=== PATIENT | female | born 1975 | race Hispanic/Latino ===

== ENCOUNTER → 2024-11-22 06:32 | Outpatient (REF) | payer OTHER, SELFPAY ==
[2024-11-22 08:11] LABS: ALT (SGPT) 16 U/L (0-35); AST (SGOT) 19 U/L (14-36); Albumin 4.4 g/dl (3.5-5.0); Alkaline Phosphatase 107 U/L (38-126); Blood Urea Nitrogen 10 mg/dl (7-17); Carbon Dioxide 23 mmol/L (22-30); Chloride 108 mmol/L (98-107); Glucose 154 mg/dl (70-99); Potassium 4.6 mmol/L (3.5-5.1); Sodium 140 mmol/L (135-145); Total Bilirubin 0.4 mg/dl (0.2-1.3); Total Protein 7.9 g/dl (6.3-8.2); eGFR > 60.00
[2024-11-22 08:24] LABS: Glycohemoglobin (HgbA1c) 7.3 % (4.0-5.6)
[2024-11-22 08:26] LABS: % Basophils 0.9 % (0-2); % Eosinophils 9.1 % (0-6); % Immature Granulocytes 0.4 % (0-0.5); % Lymphocytes 28.1 % (20.5-51.1); % Monocytes 9.8 % (1.7-9.3); % Neutrophils 51.7 % (42.2-75.2); Absolute Basophils 0.1 10^3/uL (0-0.2); Absolute Eosinophils 0.5 10^3/uL (0-0.7); Absolute Lymphocytes 1.6 10^3/uL (1.2-3.4); Absolute Monocytes 0.6 10^3/uL (0.1-0.6); Absolute Neutrophils 2.9 10^3/uL (1.4-6.5); Hematocrit 23.7 % (37.0-47.0); Hemoglobin 6.3 g/dL (12.0-16.0); Mean Corp Hgb Conc. 26.6 g/dL (33.0-37.0); Mean Corpuscular Hgb 16.5 pg (27.0-31.0); Nucleated Red Blood Cells % 0 %; Platelet Count 226 10^3/uL (130-400); Red Blood Cell Count 3.82 10^6/uL (4.20-5.40); Red Cell Dist. Width 19.3 % (11.5-14.5); White Blood Cell Count 5.7 10^3/uL (4.8-10.8)
== END ==
LOC: CLINIC 06:32
PROVIDERS: ATTENDING PHYSICIAN Nurse Practitioner Family
DX: R03.0 Elevated blood-pressure reading, without diagnosis of hypertension (principal); Z00.01 Encounter for general adult medical examination with abnormal findings
CPT/HCPCS: 36415; 80053; 83036; 84443; 85025

== ENCOUNTER 2024-11-22 15:02 | Emergency (ER) | payer SELFPAY ==
[2024-11-22] VITALS (23 sets, daily range): BP systolic 129–164; BP diastolic 73–95
--- NOTE | 2024-11-22 17:54 | ED.GENMED ---
History of Present Illness
General
Chief Complaint: Abnormal Lab Value
Source: patient and family
Exam Limitations: none
Time Seen by Provider: 11/22/24 17:19
Nursing documentation reviewed up to this point in time: agreed with
History of Present Illness
History of Present Illness:
49-year-old female referred [facility] due to anemia as she has had fatigue, noticed heavy menstrual bleeding this is perimenopausal bleeds for 9 or 10 days not bleeding now no pain, no fevers, denies rectal bleeding no hematuria history
obtained through the patient's son-in-law acting as a senior power plant operator
Past History
Past History
ED Past Medical History: None
ED Past Surgical History: None
Social History
Tobacco: Non-smoker
Alcohol: None
Drug: None
Personal:
Living: with family
Employment: Employed
Review of Systems
Review of Systems
All Other Systems: Not applicable
Constitutional: Reports fatigue
Respiratory: Reports no symptoms; Denies cough
Cardiac: Reports no symptoms; Denies chest pain or syncope
ABD/GI: Denies abdominal pain
: Reports bleeding (Heavy bleeding for 9 or 10 days a month not bleeding)
Musculoskeletal: Reports no symptoms
Skin: Reports no symptoms
Neurological: Reports weakness
Endocrine: Reports no symptoms
Phy Exam
Physical Exam
Physical Exam:
Physical Exam
General: no apparent distress, not acutely ill
Neck: Pale
Heart: Tachycardia
Lungs: no acute respiratory distress. clear bilaterally
Abdomen: Soft not
Neuro: alert and oriented. no focal neurological deficits
Skin: no rash
Psychiatric: well kept. interactive and cooperative
Extremities: no edema. no calf tenderness.
Course
Orders/Labs/Results
Orders:
Orders
11/22/24 15:11
EKG [Electrocardiogram (*1)] Urgent
Reason for Study: Tachycardia
EKG- Treatment ONCE
11/22/24 17:30
Test Result ONCE
US Pelvis Only (non-obstetric) Urgent
Comment:
Reason For Exam: post menaopausal bleeding
11/22/24 17:33
Case Management Consult ONCE
Case Management Consult: Discharge Planning
11/22/24 17:34
Blood Bank Products [* Blood Bank Products] Urgent
's Orders: stella
Blood Bank Products: *Packed RBC Leuko(PRBC's)
Quantity: 2
Transfuse Today: Yes
Reason: Anemia
11/22/24 17:38
Type And Crossmatch [Type+Screen] Stat
11/22/24 17:39
Ferritin Urgent
HCG, Serum Qualitative Screen Urgent
Iron Urgent
TIBC [Total Iron Binding] Urgent
11/22/24 17:45
0.9% Sodium Chloride 1000 ml [Nss] 1,000 ml IV BOLUS
11/22/24 17:57
ABO2 Urgent
BBK Wristband Number:
Associate notified that ABO2 has been ordered: [id number]
Date: 11/22/24
Time: 17:50
Plodding Machine Operator ID: [id number]
Abnormal Lab Results
11/22/24 11/22/24
17:38 17:39
Iron 27 L ug/dl
(37-170)
TIBC 603 H ug/dl
(265-497)
% Saturation 4 L %
(20-50)
Ferritin 3.6 L ng/ml
(6.24-137)
Crossmatch IS Only See Detail
Vital Signs
Initial and Last Documented VS:
Initial Vital Signs
Temp Pulse Resp BP Pulse Ox
98.4 F 121 18 164/95 98
11/22/24 15:06 11/22/24 15:06 11/22/24 15:06 11/22/24 15:06 11/22/24 15:06
Last Documented Vital Signs
Temp Pulse Resp BP Pulse Ox
98.4 F 121 18 164/95 98
11/22/24 15:06 11/22/24 15:06 11/22/24 15:06 11/22/24 15:06 11/22/24 15:06
MDM/Problems Addressed
Differential Diagnosis Includes:
Microcytic anemia complains of heavy menstrual cycle will add iron indices, hCG check pelvic ultrasound consents for transfusion
MDM/Problems Addressed:
Microcytic and
*Radiology
Radiology exam reviewed: radiology read reviewed
*Pulse Oximetry
Patient hypoxic: no
*EKG
Interpreted by ED Provider?: Yes
Interpretation: abnormal
Comparison EKG: no comparison EKG present
Heart Rate: 118
Rate: tachycardiac
Rhythm: sinus
Ischemia: non-specific ST changes
*Inspector Outside Production Interpretation
Rate: tachycardiac
Interpretation: abnormal
Heart Rate: 118
Rhythm: a-fib
*Critical Care Note
Total Time (30-74mins, 75-104mins- exclusive of procedures): Not Applicable
Data Reviewed
Review of Other/Old Records Reveals: Labs
Update Note
Update Note:
Update ultrasound noted bloods been ordered will discharge on iron follow-up as an outpatient
ED Attending Note
-
Portions of this chart may have been created with voice recognition software.� Occasional wrong word or��sound alike� substitutions may have occurred due to the inherent limitations of voice recognition software.
Discharge Plan
Departure
Patient Disposition: Home (Routine Discharge)
Date of Disposition: 11/22/24
Time of Disposition: 19:59
Patient with high blood pressure during this ER visit?: No
Condition: Good
Discharge Problem:
Anemia
Instructions: Normocytic Normochromic Anemia (DC)
Prescriptions:
New
ferrous sulfate [Feosol] 325 mg (65 mg iron) tablet
325 mg PO DAILY Qty: 30 2RF
Referrals:
NONE,* [Family Provider, Internal Medicine]
Interventions
Interventions:
*Risk Screen - Suicide Last Done: 11/22/24 15:06
*General Assessment Last Done: 11/22/24 15:06
*Neglect/Abuse Screening Last Done: 11/22/24 15:06
*ED- Fall Risk Assessment Last Done: 11/22/24 15:06
*ED COVID-19 Vaccine History Last Done: 11/22/24 15:06
Discharge Date and Time
Print Language: SURINAMESE
[2024-11-22 18:02] LABS: HCG, Serum Qualitative Screen Negative
[2024-11-22 18:07] LABS: Iron 27 ug/dl (37-170)
[2024-11-22 18:16] LABS: Percent Saturation 4 % (20-50); Total Iron Binding Capacity 603 ug/dl (265-497)
[2024-11-22 18:44] LABS: Ferritin 3.6 ng/ml (6.24-137)
[2024-11-22] MEDS: NSS 1000 IV (18:53)
[2024-11-23] VITALS: BP 141/77
== END 2024-11-23 00:16 | disposition home or self-care (01) ==
LOC: EMR 15:02
PROVIDERS: EMERGENCY PHYSICIAN Emergency Medicine
DX: D64.9 Anemia, unspecified (principal); R53.83 Other fatigue; I48.91 Unspecified atrial fibrillation
CPT/HCPCS: 99284; 96360; 76856; 82728; 83540; 83550; 84703; 86850; 86900; 86901; 86920; 93005; P9016

== ENCOUNTER → 2024-12-28 06:31 | Outpatient (REF) | payer OTHER, SELFPAY ==
[2024-12-28 07:49] LABS: ALT (SGPT) 27 U/L (0-35); AST (SGOT) 26 U/L (14-36); Albumin 4.4 g/dl (3.5-5.0); Alkaline Phosphatase 98 U/L (38-126); Blood Urea Nitrogen 12 mg/dl (7-17); Calcium 9.1 mg/dl (8.4-10.2); Carbon Dioxide 26 mmol/L (22-30); Chloride 107 mmol/L (98-107); Glucose 149 mg/dl (70-99); Potassium 4.6 mmol/L (3.5-5.1); Sodium 139 mmol/L (135-145); Total Protein 8.1 g/dl (6.3-8.2); eGFR > 60.00
[2024-12-28 07:58] LABS: Hematocrit 36.0 % (37.0-47.0); Hemoglobin 11.2 g/dL (12.0-16.0); Mean Corp Hgb Conc. 31.1 g/dL (33.0-37.0); Mean Corpuscular Volume 75.8 fL (81.0-99.0); Nucleated Red Blood Cells % 0 %
[2024-12-28 08:55] LABS: Platelet Count 217 10^3/uL (130-400)
[2024-12-28 08:56] LABS: Anisocytosis 1+; Hypochromasia 1+; Microcytosis 1+; Normal RBC Morphology No
[2024-12-28 08:57] LABS: Ovalocytes 1+
== END ==
LOC: CLINIC 06:31
PROVIDERS: ATTENDING PHYSICIAN Nurse Practitioner Family
DX: D50.8 Other iron deficiency anemias (principal)
CPT/HCPCS: 36415; 80053; 85025

== ENCOUNTER → 2025-01-26 06:17 | Outpatient (REF) | payer OTHER, SELFPAY ==
[2025-01-26 07:20] LABS: Hematocrit 36.3 % (37.0-47.0); Hemoglobin 11.8 g/dL (12.0-16.0); Mean Corp Hgb Conc. 32.5 g/dL (33.0-37.0); Mean Corpuscular Volume 82.3 fL (81.0-99.0); Nucleated Red Blood Cells % 0 %; Platelet Count 236 10^3/uL (130-400)
[2025-01-26 07:27] LABS: ALT (SGPT) 15 U/L (0-35); AST (SGOT) 17 U/L (14-36); Albumin 4.3 g/dl (3.5-5.0); Alkaline Phosphatase 105 U/L (38-126); Blood Urea Nitrogen 11 mg/dl (7-17); Calcium 8.8 mg/dl (8.4-10.2); Carbon Dioxide 27 mmol/L (22-30); Chloride 105 mmol/L (98-107); Glucose 149 mg/dl (70-99); Potassium 4.2 mmol/L (3.5-5.1); Sodium 139 mmol/L (135-145); Total Protein 7.7 g/dl (6.3-8.2); eGFR > 60.00
[2025-01-26 07:39] LABS: Anisocytosis Slight; Normal RBC Morphology No
[2025-01-26 07:40] LABS: Hypochromasia 1+; Microcytosis Slight
== END ==
LOC: CLINIC 06:17
PROVIDERS: ATTENDING PHYSICIAN Nurse Practitioner Family
DX: D50.8 Other iron deficiency anemias (principal)
CPT/HCPCS: 36415; 80053; 85025

== ENCOUNTER → 2025-02-26 06:31 | Outpatient (REF) | payer OTHER, SELFPAY ==
[2025-02-26 07:24] LABS: Hematocrit 35.9 % (37.0-47.0); Hemoglobin 12.1 g/dL (12.0-16.0); Mean Corp Hgb Conc. 33.7 g/dL (33.0-37.0); Mean Corpuscular Volume 85.3 fL (81.0-99.0); Nucleated Red Blood Cells % 0 %; Platelet Count 231 10^3/uL (130-400); Red Cell Dist. Width 15.9 % (11.5-14.5)
[2025-02-26 07:47] LABS: Blood Urea Nitrogen 9 mg/dl (7-17); Calcium 9.1 mg/dl (8.4-10.2); Carbon Dioxide 27 mmol/L (22-30); Chloride 102 mmol/L (98-107); Glucose 145 mg/dl (70-99); Potassium 4.8 mmol/L (3.5-5.1); Sodium 135 mmol/L (135-145); eGFR > 60.00
[2025-02-26 10:39] LABS: Glycohemoglobin (HgbA1c) 7.1 % (4.0-5.6)
== END ==
LOC: CLINIC 06:31
PROVIDERS: ATTENDING PHYSICIAN Nurse Practitioner Family
DX: D50.8 Other iron deficiency anemias (principal)
CPT/HCPCS: 36415; 80048; 83036; 85025

== ENCOUNTER 2025-03-16 18:38 | Emergency (ER) | payer SELFPAY ==
[2025-03-16 19:05] VITALS: BP 138/77
[2025-03-16 19:26] LABS: Hematocrit 32.9 % (37.0-47.0); Hemoglobin 11.4 g/dL (12.0-16.0); Mean Corp Hgb Conc. 34.7 g/dL (33.0-37.0); Mean Corpuscular Volume 85.7 fL (81.0-99.0); Nucleated Red Blood Cells % 0 %; Platelet Count 254 10^3/uL (130-400); Red Cell Dist. Width 14.1 % (11.5-14.5)
[2025-03-16 19:27] LABS: Urine Character Slightly Cloudy (Clear)
[2025-03-16 19:39] LABS: HCG, Serum Qualitative Screen Negative
[2025-03-16 19:44] LABS: Urine Squamous Cell 16-20 /LPF (Few)
[2025-03-16 19:45] LABS: Urine Red Blood Cell 50-60 /HPF (0-2)
[2025-03-16 19:56] LABS: ALT (SGPT) 21 U/L (0-35); AST (SGOT) 20 U/L (14-36); Albumin 4.4 g/dl (3.5-5.0); Alkaline Phosphatase 96 U/L (38-126); Blood Urea Nitrogen 13 mg/dl (7-17); Calcium 9.1 mg/dl (8.4-10.2); Carbon Dioxide 24 mmol/L (22-30); Chloride 105 mmol/L (98-107); Glucose 169 mg/dl (70-99); Lipase 85 U/L (23-300); Potassium 3.9 mmol/L (3.5-5.1); Sodium 137 mmol/L (135-145); Total Protein 7.8 g/dl (6.3-8.2); eGFR > 60.00
[2025-03-16 23:19] VITALS: BMI 30.7
[2025-03-16 23:31] VITALS: BP 147/78
[2025-03-16] MEDS: TORADOL 15 MG IM (23:46)
--- NOTE | 2025-03-16 23:56 | ED.GENMED ---
History of Present Illness
General
Chief Complaint: Abdominal Pain
Source: patient and spouse
Time Seen by Provider: 03/16/25 23:20
History of Present Illness
History of Present Illness:
This patient is a 49-year-old female presents to the emergency department with 4 days of pain across her lower abdominal area, constant, crampy, without exacerbating relieving factors. It was not sudden onset or worst of life. Pain does not
radiate to her back or upper abdomen, or elsewhere. She denies associated fever, chills, nausea, vomiting, anorexia, chest pain, dyspnea, back, urinary symptoms, diarrhea, constipation. Her bowel movements have been normal consistency and color.
Patient is having vaginal bleeding, changing a pad about once an hour with occasional clots. Her last menstruation was about a month ago. She suspects that her symptoms are related to her menstrual cycle but notes that the discomfort is worse than
usual.
Past History
Past History
ED Past Medical History: Other (Anemia, hypertension)
Social History
Tobacco: Non-smoker
Alcohol: None
Drug: None
Personal:
Living: with family
Employment: Employed
Phy Exam
Physical Exam
Physical Exam:
GENERAL: Alert , in no apparent distress
EYE: pupils equal and reactive
NECK: Supple, no significant adenopathy.
ENT: o/p clr, mmm.
CARDIAC: Regular rate and rhythm .
LUNGS: Clear breath sounds bilaterally, no acute respiratory distress, no wheezes/rales/rhonchi
ABDOMEN: Soft, without focal tenderness, no r/g, no cvat
NEUROLOGICAL: Alert and oriented, no focal neuro deficits
SKIN: Warm and dry, skin intact.
MUSCULOSKELETAL: No edema, well perfused.
PSYCH: Normal and appropriate interaction.
Course
Orders/Labs/Results
Orders:
Orders
03/16/25 19:10
Test Result ONCE
03/16/25 19:16
Urinalysis Reflex To Culture Urgent
Date Specimen was Collected: 03/16/25
Time Specimen was Collected: 19:10
Urine Microscopic Reflex Cult Urgent
Urine Culture Urgent
YENNY Source: U
Specimen Description:
Date Specimen was Collected: 03/16/25
Time Specimen was Collected: 19:10
03/16/25 19:19
Complete Blood Count/With Diff Urgent
Comprehensive Metabolic Panel Urgent
HCG, Serum Qualitative Screen Urgent
Lipase Urgent
03/16/25 23:36
Ketorolac [Toradol] 15 mg IM NOW STA
03/17/25 23:36
US Pelvis Only (non-obstetric) Urgent
Reason For Exam: bleeding, pain
Abnormal Lab Results
03/16/25 03/16/25
19:16 19:19
RBC 3.84 L 10^6/uL
(4.20-5.40)
Hgb 11.4 L g/dL
(12.0-16.0)
Hct 32.9 L %
(37.0-47.0)
MPV 10.9 H fL
(7.4-10.4)
Eosinophils % 8.5 H %
(0-6)
Creatinine 0.5 L mg/dL
(0.6-1.0)
Glucose 169 H mg/dl
(70-99)
Ur Occult Blood Reflex 4+ A
(Negative)
Leukocyte Esterase Rfl 1+ A
(Negative)
Urine RBC 50-60 A /HPF
(0-2)
Urine Bacteria (Reflex) Few A
(Negative)
Urine Albumin (Reflex) 1+ A
(Neg - Trace)
03/16/25 19:19
03/16/25 19:19
Vital Signs
Initial and Last Documented VS:
Initial Vital Signs
Temp Pulse Resp BP Pulse Ox
98.6 F 75 16 138/77 99
03/16/25 19:05 03/16/25 19:05 03/16/25 19:05 03/16/25 19:05 03/16/25 19:05
Last Documented Vital Signs
Temp Pulse Resp BP Pulse Ox
98.6 F 75 16 128/69 98
03/16/25 19:05 03/16/25 19:05 03/16/25 23:28 03/17/25 00:00 03/17/25 00:15
*Pulse Oximetry
SaO2: 98
Oxygen Mode of Delivery: Room air
Update Note
Update Note:
Patient presents to the Emergency Department with abdominal pain with vaginal bleeding
Number and Complexity of Problems Addressed at the Encounter
� Chronic conditions affecting care:
� Acute Exacerbation and/or Progression of Chronic Illness:
� Differential Diagnosis includes: But not limited to uterine fibroids, dysfunctional uterine bleeding, threatened AB, ectopic , etc. etc.
Amount and/or Complexity of Data to be Reviewed and Analyzed
� I performed an independent evaluation of and my interpretation is:
EKG:
CT:
Xrays:
Laboratory Studies: Mild anemia noted, hCG negative, urine with expected blood, nonspecific WBC count with multiple squamous cells not consistent with UTI
Other: Ultrasound vision report limited transabdominal exam only left exophytic anterior fibroid measures up to 4.6 cm exophytic anterior fundal fibroid measures 1.9 cm endometrium measures 0.4 cm nonenlarged ovaries with normal
vascular flow no pelvic free fluid
� Review of other/old records reveals: Ultrasound from November 2024 shows just 1 left-sided fundal fibroid, no abnormal solid or complex adnexal masses
� Clinical information was obtained by an independent historian: at bedside who helps answer questions. History obtained with the assistance of an call manager through the language line
� Prescriptions/Medications Considered but not given:
� Further testing considered but not performed:
Risk of Complications and/or Morbidity or Mortality of Patient Management
� Social determinants of health affecting care:
� Discussion with other providers (PCP, Hospitalists, Consultants, etc):
� Escalation of care including admission/observation vs risk of discharge considered: Patient presents with pain, vaginal bleeding, and now 2 fibroids noted on ultrasound. Bleeding is moderate, no associated vital sign
abnormalities or anemia, patient not describing lightheadedness, palpitations, or other symptoms to suggest concerning level of blood loss. Not dyspneic. Will refer for outpatient follow-up regarding these findings of fibroids. Note all of this
follow-up information was given to patient and using the call manager line, all questions answered. I hand wrote a prescription for iron for her at her request
ED Attending Note
-
Portions of this chart may have been created with voice recognition software.� Occasional wrong word or��sound alike� substitutions may have occurred due to the inherent limitations of voice recognition software.
Discharge Plan
Departure
Patient Disposition: Home (Routine Discharge)
Date of Disposition: 03/17/25
Time of Disposition: 03:32
Patient with high blood pressure during this ER visit?: Yes
Condition: Good
Discharge Problem:
Fibroid
Instructions: Uterine fibroids, BLOOD PRESSURE
Prescriptions:
No Action
ferrous sulfate [Feosol] 325 mg (65 mg iron) tablet
325 mg PO DAILY Qty: 30 2RF
Referrals:
NONE,* [Family Provider, Internal Medicine]
Charlotte Julien MD [Active, Gynecology] - Next open appointment
Activity Restrictions/Additional Instructions:
IF YOU DEVELOP DIZZINESS, SHORTNESS OF BREATH, INCREASING PAIN, INCREASING BLEEDING, GET WORSE, OR OTHER WORRISOME SIGNS, PLEASE RETURN TO THE ER IMMEDIATELY
Interventions
Interventions:
*Risk Screen - Suicide Last Done: 03/16/25 23:27
*General Assessment Last Done: 03/16/25 23:27
*Neglect/Abuse Screening Last Done: 03/16/25 23:27
*ED- Fall Risk Assessment Last Done: 03/16/25 23:27
*ED COVID-19 Vaccine History Last Done: 03/16/25 23:27
RK-Mqsaxf-Cieszlqjja Assessment Last Done: 03/16/25 23:29
Discharge Date and Time
Print Language: RWANDAN
[2025-03-17] VITALS: BP 128/69
[2025-03-17 03:49] VITALS: BP 123/66
== END 2025-03-17 04:03 | disposition home or self-care (01) ==
LOC: EMR 18:38
PROVIDERS: Emergency Medicine; EMERGENCY PHYSICIAN Emergency Medicine
DX: D25.9 Leiomyoma of uterus, unspecified (principal); I10 Essential (primary) hypertension
CPT/HCPCS: 99284; 96372; 76856; 80053; 81003; 81015; 83690; 84703; 85025; 87086